=== PATIENT | female | born 1990 | race Hispanic/Latino ===

== ENCOUNTER → 2023-08-18 12:59 | Outpatient (REF) | payer OTHER, SELFPAY | LOC: CPAP 12:59 | PROVIDERS: ATTENDING PHYSICIAN Nurse Practitioner Adult Health | DX: N76.0 Acute vaginitis (principal) | CPT/HCPCS: 87491; 87591 ==

== ENCOUNTER → 2024-06-01 14:39 | Outpatient (REF) | payer OTHER, SELFPAY ==
[2024-06-01 16:18] LABS: TSH Reflex To Free T4 1.33 uIU/ml (0.47-4.68)
[2024-06-02 08:44] LABS: Glycohemoglobin (HgbA1c) 5.4 % (4.0-5.6)
== END ==
LOC: CLINIC 14:39
PROVIDERS: ATTENDING PHYSICIAN Nurse Practitioner Adult Health
DX: N91.2 Amenorrhea, unspecified (principal); R73.03 Prediabetes
CPT/HCPCS: 36415; 83036; 84443

== ENCOUNTER → 2024-08-17 14:37 | Outpatient (REF) | payer OTHER, SELFPAY ==
[2024-08-20 07:48] LABS: HPV, High Risk Detected; HPV, High Risk Source Cervical
== END ==
LOC: CLINIC 14:37
PROVIDERS: ATTENDING PHYSICIAN Obstetrics & Gynecology Gynecology
DX: Z12.4 Encounter for screening for malignant neoplasm of cervix (principal)
CPT/HCPCS: 87624